=== PATIENT | female | born 1975 | race Caucasian/White ===

== ENCOUNTER 2017-04-03 18:57 | Observation (INO) | payer OTHER ==
[~2017-04-03] VITALS: Ht 157.5 cm; Wt 88.5 kg
[~2017-04-03 18:57] MED LIST: LEXAPRO20 MG PO
[2017-04-03 21:32] LABS: HEMOGLOBIN 11.4 gm/dl (12.3-15.3); RED BLOOD COUNT 4.37 M/UL (4.00-5.10); WHITE BLOOD COUNT 8.8 K/UL (4.5-11.0)
[2017-04-03 21:52] LABS: BUN/CREATININE RATIO 22 (0-10)
[2017-04-04] MEDS ORDERED: METOPROLOL SUCC50 MG PO (05:33)
[2017-04-04] MEDS ORDERED: CATAPRES 0.1MG0.1 MG PO (05:34)
[2017-04-04] MEDS ORDERED: INSULIN PUMP (05:37)
[2017-04-05] MEDS ORDERED: ASPIR 8181 MG PO (11:35)
[2017-04-05] MEDS ORDERED: HYDROCHLOROTHIA25 MG PO (11:36)
[2017-04-05] MEDS ORDERED: BENICAR 20 MG T20 MG PO (11:37)
[2017-04-05] MEDS ORDERED: TRICOR145 MG PO (11:38)
[2017-04-05] MEDS ORDERED: TYLENOL 325MG325 MG PO (11:56)
[2017-07-12] MEDS ORDERED: APIDRA100 UNIT/1 SQ (03:21)
[2017-07-13] MEDS ORDERED: CIPRO500 MG PO (12:00)
[2017-07-13] MEDS ORDERED: NORCO 7.5-3251 EACH PO (12:01)
[2017-07-13] MEDS ORDERED: LEXAPRO10 MG PO (12:01)
[2017-07-13] MEDS ORDERED: PHENERGAN 25 MG25 M1 PO (13:30)
== END 2017-04-05 13:13 | disposition home or self-care (01) ==
LOC: ER1 18:57 → ZEROF 04-04 02:42 → M/S 04-04 05:03
PROVIDERS: Physician Assistant; ADMIT Family Medicine
DX: I16.0 Hypertensive urgency (principal); R07.9 Chest pain, unspecified; E11.9 Type 2 diabetes mellitus without complications; E78.5 Hyperlipidemia, unspecified; Z88.8 Allergy status to other drugs, medicaments and biological substances; Z79.4 Long term (current) use of insulin; Z79.899 Other long term (current) drug therapy
CPT/HCPCS: ECHO; 36415; 70450; 71010; 80053; 80061; 81001; 82550; 82553; 82962; 83874; 83880; 84439; 84443; 84484; 85025; 93005; 93306; 96372; 96374; 96375; 99285; G0378; J1650; J2405; J2550; J7050

== ENCOUNTER 2020-12-02 16:04 | Emergency (ER) | payer OTHER ==
[~2020-12-02 16:04] MED LIST changes: +APIDRA SOL100 UNIT/1 SQ; +APIDRA100 UNIT/1 SQ; +ASPIR 8181 MG PO; +ASPIRIN EC81 MG PO; +ATORVASTATIN CA20 MG PO; +AUGMENTIN 875-1 EACH PO; +BACTRIM DS TAB1 EACH PO; +BASAGLAR K100 UNIT/1 SC; +BASAGLAR K100 UNIT/1 SQ; +BENICAR 20 MG T20 MG PO; +BENTYL 20MG TAB20 MG PO; +BRILINTA90 MG PO; +CARVEDILOL3.125 MG PO; +CATAPRES 0.1MG0.1 MG PO; +CIPRO500 MG PO; +COZAAR 50MG TAB50 MG PO; +COZAAR100 MG PO; +ECOTRIN81 MG PO; +HYDROCHLOROTHIA25 MG PO; +IMDUR ER TAB 3030 MG PO; +INSULIN PUMP; +KEFLEX CAP 500500 MG PO; +LABETALOL HCL200 MG PO; +LASIX20 MG PO; +LEXAPRO10 MG PO; +LIPITOR TAB 2020 MG PO; +LISINOPRIL10 MG PO; +METFORMIN HCL750 MG PO; +METOPROLOL SUCC50 MG PO; +NORCO 5-325 TA1 EACH PO; +NORCO 7.5-3251 EACH PO; +PHENERGAN 25 MG25 M1 PO; +TRICOR145 MG PO; +TYLENOL 325MG325 MG PO; +VIGAMOX3 ML OP; +ZOFRAN4 MG PO
[2020-12-02 17:28] LABS: HEMOGLOBIN 12.3 gm/dl (12.3-15.3); RED BLOOD COUNT 5.29 M/UL (4.00-5.10); WHITE BLOOD COUNT 10.2 K/UL (4.5-11.0)
[2020-12-02 18:09] LABS: BUN/CREATININE RATIO 19 (0-10)
== END 2020-12-02 21:15 | disposition home or self-care (01) ==
LOC: ER1 16:04
PROVIDERS: Family Medicine
DX: R10.11 Right upper quadrant pain (principal); R10.31 Right lower quadrant pain; I10 Essential (primary) hypertension; E11.9 Type 2 diabetes mellitus without complications; Z88.8 Allergy status to other drugs, medicaments and biological substances; Z90.49 Acquired absence of other specified parts of digestive tract; Z96.41 Presence of insulin pump (external) (internal); Z98.890 Other specified postprocedural states
CPT/HCPCS: 80053; 81001; 82150; 82550; 82553; 83690; 83874; 84484; 85025; 96374; 96375; 96376; 99284; J2270; J2550; Q9967

== ENCOUNTER 2021-03-15 13:26 | Emergency (ER) | payer OTHER ==
[2021-03-15] MEDS ORDERED: IBUPROFEN600 MG PO (16:02)
== END 2021-03-15 16:09 | disposition home or self-care (01) ==
LOC: ER1 13:26
DX: S80.02XA Contusion of left knee, initial encounter (principal); E10.9 Type 1 diabetes mellitus without complications; Z79.4 Long term (current) use of insulin; Z90.49 Acquired absence of other specified parts of digestive tract; Z88.8 Allergy status to other drugs, medicaments and biological substances; W01.0XXA Fall on same level from slipping, tripping and stumbling without subsequent striking against object, initial encounter
CPT/HCPCS: 73564; 99283

== ENCOUNTER 2021-08-31 07:51 | Emergency (ER) | payer OTHER ==
[~2021-08-31 07:51] MED LIST changes: +IBUPROFEN600 MG PO
[2021-08-31 09:23] LABS: RED BLOOD COUNT 5.09 M/UL (4.00-5.10); WHITE BLOOD COUNT 8.3 K/UL (4.5-11.0)
[2021-08-31 09:54] LABS: BUN/CREATININE RATIO 24 (0-10)
[2021-08-31] MEDS ORDERED: IBUPROFEN600 MG PO (13:35)
[2021-08-31] MEDS ORDERED: OMNICEF 300 MG300 MG PO (13:35)
== END 2021-08-31 13:40 | disposition home or self-care (01) ==
LOC: ER1 07:51
PROVIDERS: Emergency Medicine
DX: S00.03XA Contusion of scalp, initial encounter (principal); E11.9 Type 2 diabetes mellitus without complications; J12.9 Viral pneumonia, unspecified; N39.0 Urinary tract infection, site not specified; V49.40XA Driver injured in collision with unspecified motor vehicles in traffic accident, initial encounter; Y92.410 Unspecified street and highway as the place of occurrence of the external cause; Z20.822 Contact with and (suspected) exposure to COVID-19; Z88.8 Allergy status to other drugs, medicaments and biological substances
CPT/HCPCS: 70450; 71260; 72125; 73030; 73080; 80053; 81001; 83690; 84703; 85025; 96374; 96375; 99284; J0696; J1885; J2270; J2405; Q9967; U0002

== ENCOUNTER 2021-09-16 07:58 | Inpatient (IN) | payer OTHER ==
[~2021-09-16] VITALS: Ht 157.5 cm; Wt 79.0 kg
[~2021-09-16 07:58] MED LIST changes: +OMNICEF 300 MG300 MG PO
[2021-09-16 08:27] LABS: HEMOGLOBIN 11.8 gm/dl (12.3-15.3); RED BLOOD COUNT 5.51 M/UL (4.00-5.10); WHITE BLOOD COUNT 13.6 K/UL (4.5-11.0)
[2021-09-16 09:05] LABS: BUN/CREATININE RATIO 16 (0-10)
[2021-09-16] MEDS ORDERED: GLUCOPHAGE 850850 MG PO (12:09)
[2021-09-16] MEDS ORDERED: IBU600 MG PO (12:10)
[2021-09-16] MEDS ORDERED: OZEMPIC1 MG/0.71 SQ (12:12)
--- NOTE | 2021-09-16 15:30 | NUR ---
1530: PT RING GIVEN TO PT'S MOTHER BY [employer].
[2021-09-17 03:46] LABS: HEMOGLOBIN 9.7 gm/dl (12.3-15.3); RED BLOOD COUNT 4.53 M/UL (4.00-5.10); WHITE BLOOD COUNT 9.2 K/UL (4.5-11.0)
[2021-09-17 04:58] LABS: BUN/CREATININE RATIO 17 (0-10)
[2021-09-17] MEDS ORDERED: LISINOPRIL10 MG PO (10:18)
[2021-09-17] MEDS ORDERED: PROTONIX 40 MG40 M1 PO (10:18)
[2021-09-17] MEDS ORDERED: BRILINTA 90 MG90 MG PO (10:18)
[2021-09-17] MEDS ORDERED: LOPRESSOR 25 MG25 MG PO (10:18)
[2021-09-17] MEDS ORDERED: ASPIRIN EC81 MG PO (10:18)
[2021-09-17] MEDS ORDERED: AUGMENTIN 875-1 EACH PO (10:18)
[2021-09-17] MEDS ORDERED: ATORVASTATIN CA20 MG PO (10:18)
== END 2021-09-18 14:18 | disposition home or self-care (01) | DRG 246 ==
LOC: ER1 07:58 → CDU 09:34 → PROG CARE 09:34
PROVIDERS: Emergency Medicine; Internal Medicine; Internal Medicine Interventional Cardiology; ADMIT Family Medicine
PROC: 027034Z Dilation of Coronary Artery, One Artery with Drug-eluting Intraluminal Device, Percutaneous Approach (ICD-10-PCS; principal; 2021-09-16)
PROC: 4A023N7 Measurement of Cardiac Sampling and Pressure, Left Heart, Percutaneous Approach (ICD-10-PCS; 2021-09-16)
PROC: B2111ZZ Fluoroscopy of Multiple Coronary Arteries using Low Osmolar Contrast (ICD-10-PCS; 2021-09-16)
PROC: B24BZZZ Ultrasonography of Heart with Aorta (ICD-10-PCS; 2021-09-16)
DX: I21.4 Non-ST elevation (NSTEMI) myocardial infarction (principal); J18.9 Pneumonia, unspecified organism; I50.22 Chronic systolic (congestive) heart failure; Z20.822 Contact with and (suspected) exposure to COVID-19; I25.10 Atherosclerotic heart disease of native coronary artery without angina pectoris; E66.9 Obesity, unspecified; D75.838 Other thrombocytosis; D64.9 Anemia, unspecified; E78.5 Hyperlipidemia, unspecified; I11.0 Hypertensive heart disease with heart failure; I08.1 Rheumatic disorders of both mitral and tricuspid valves; E11.9 Type 2 diabetes mellitus without complications; Z95.5 Presence of coronary angioplasty implant and graft; Z91.14 Patient's other noncompliance with medication regimen; Z90.49 Acquired absence of other specified parts of digestive tract; Z98.84 Bariatric surgery status; Z82.49 Family history of ischemic heart disease and other diseases of the circulatory system; Z88.6 Allergy status to analgesic agent; Z80.9 Family history of malignant neoplasm, unspecified; Z82.3 Family history of stroke; Z83.49 Family history of other endocrine, nutritional and metabolic diseases; Z83.3 Family history of diabetes mellitus; Z79.4 Long term (current) use of insulin; Z68.31 Body mass index [BMI] 31.0-31.9, adult
CPT/HCPCS: ECHO; 36415; 71045; 80053; 80061; 80307; 82550; 82553; 82728; 82962; 83036; 83605; 83690; 83874; 83880; 84439; 84443; 84484; 84703; 85025; 85347; 85379; 85610; 85730; 86140; 93005; 93306; 99152; 99153; 99285; C1725; C1769; C1874; C1887; C1894; C9600; J0360; J0461; J0696; J1170; J1644; J2060; J2550; J3010; J3246; J7040; Q9967; U0002

== ENCOUNTER 2022-06-11 19:03 | Emergency (ER) | payer OTHER ==
[~2022-06-11 19:03] MED LIST changes: +BRILINTA 90 MG90 MG PO; +GLUCOPHAGE 850850 MG PO; +IBU600 MG PO; +LOPRESSOR 25 MG25 MG PO; +OZEMPIC1 MG/0.71 SQ; +PROTONIX 40 MG40 M1 PO
[2022-06-11] MEDS ORDERED: ONDANSETRON ODT4 MG SL (22:52)
== END 2022-06-11 23:44 | disposition home or self-care (01) ==
LOC: ER1 19:03
DX: G43.909 Migraine, unspecified, not intractable, without status migrainosus (principal); I11.9 Hypertensive heart disease without heart failure; E11.9 Type 2 diabetes mellitus without complications; Z88.8 Allergy status to other drugs, medicaments and biological substances; Z98.84 Bariatric surgery status
CPT/HCPCS: 96374; 96375; 99283; J0780; J1885